=== PATIENT | female | born 1955 | race Caucasian/White ===

== ENCOUNTER → 2016-05-27 | Outpatient (CLI) | payer MEDICARE, MEDICAID ==
[~2016-05-27] MED LIST: ALENDRONATE SOD70 M1 PO; ATENOLOL25 M1 PO; HYDROCHLOROTHIA25 M1 PO
[2016-05-27 13:50] LABS: BUN 20 mg/dL (7-18)
[2016-05-27 13:51] LABS: GFR (ESTIMATED) 101 ML/MIN (59-)
== END ==
LOC: CARL-LAB 09:17
PROVIDERS: Family Medicine
DX: E11.9 Type 2 diabetes mellitus without complications (principal); E78.5 Hyperlipidemia, unspecified

== ENCOUNTER 2016-09-09 06:17 | Day surgery (SDC) | payer MEDICARE, MEDICAID ==
[2016-09-09 10:00] VITALS: BP 146/80
== END 2016-09-09 08:35 | disposition home or self-care (01) ==
LOC: SDC 06:17
PROVIDERS: Ophthalmology
PROC: 08RJ3JZ Replacement of Right Lens with Synthetic Substitute, Percutaneous Approach (ICD-10-PCS; principal; 2016-09-09 07:30)
DX: H26.9 Unspecified cataract (principal); E11.9 Type 2 diabetes mellitus without complications
CPT/HCPCS: V2632